=== PATIENT | male | born 1985 | race Caucasian/White ===

== ENCOUNTER 2016-09-12 22:52 | Emergency (ER) | payer MEDICAID ==
[~2016-09-12] VITALS: Ht 157.5 cm; Wt 86.0 kg
[2016-09-12 23:01] VITALS: Ht 157.5 cm; Wt 86.0 kg
[2016-09-12] MEDS ORDERED: ONDANSETRON (ODT) 4 MG TAB ODT STA (23:25)
[2016-09-12] MEDS ORDERED: SOD CHLORIDE 0.9% 1,000 ML IV ONE (23:30)
[2016-09-13] MEDS ORDERED: METR500T PO (00:10)
[2016-09-13] MEDS ORDERED: CIPR500T4 PO (00:10)
--- NOTE | 2016-09-13 02:15 | ERA ---
ER Documentation Chief Complaint Date/Time DATE: 09/13/16 TIME: 02:09 Chief Complaint weakness x 2 days HPI Patient is a 31-year-old male presenting with his mother who is a crate maker and seems reliable. Patient's chief complaint is watery diarrhea. Patient has had watery diarrhea for the past 2 days and describes it as profuse and 7 times within the past 30 hours. Patient ate fish 2 days ago with his family. No other on the family has symptoms. Patient also complains of fatigue. Claims he has been drinking liquids but has developed anorexia. 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 Patient denies any cough, congestion, fever, dysuria, hematuria headache, or dizziness. Patient was recently worked up for TB roughly 4 months ago per patient's mother and all results were negative. ROS All systems reviewed and are negative except as per history of present illness. Medications Home Meds Active Scripts Ciprofloxacin Hcl* (Ciprofloxacin Hcl*) 500 Mg Tablet, 500 MG PO BID for 7 Days , TAB Prov:KUMAR CRUZ PA-C 09/13/16 Metronidazole* (Flagyl*) 500 Mg Tablet, 500 MG PO TID for 7 Days, TAB Prov:KUMAR CRUZ PA-C 09/13/16 Allergies Allergies: Coded Allergies: No Known Allergy (Unverified , 09/12/16) PMhx/Soc Medical and Surgical Hx: pt denies Medical Hx History of Surgery: Yes (ABDOMINAL SURGERY CHILD) Anesthesia Reaction: No Hx Neurological Disorder: No Hx Respiratory Disorders: No Hx Cardiac Disorders: No Hx Psychiatric Problems: No Hx Miscellaneous Medical Probl: No Hx Alcohol Use: No Hx Substance Use: No Hx Tobacco Use: No Smoking Status: Never smoker Physical Exam Vitals Vital Signs Date Time Temp Pulse Resp B/P Pulse Ox O2 Delivery O2 Flow Rate FiO2 09/12/16 23:01 97.3 101 20 136/85 100 Physical Exam Const: Overweight 31-year-old male presenting with his mother Head: Atraumatic Eyes: Normal Conjunctiva ENT: Normal External Ears, Nose and Mouth. Moist mucous membranes. Neck: Full range of motion..~ No meningismus. Resp: Clear to auscultation bilaterally Cardio: Regular rate and rhythm, no murmurs Abd: Soft, non tender, non distended. Hyperactive bowel sounds Skin: No petechiae or rashes Back: No midline or flank tenderness Ext: No cyanosis, or edema Neur: Awake and alert Psych: Normal Mood and Affect Results 24 hrs Current Medications Medications (Trade) Dose Ordered Sig/Ashu Route PRN Reason Start Time Stop Time Status Last Admin Dose Admin Sodium Chloride (NS) 1,000 ml @ 1,000 mls/hr Q1H ONCE IV 09/12/16 23:30 09/13/16 00:29 DC 09/12/16 23:39 Ondansetron HCl (Zofran Odt) 4 mg ONCE STAT ODT 09/12/16 23:25 09/12/16 23:26 DC 09/12/16 23:39 Procedures/MDM Patient is 31-year-old male presenting complaining of profuse watery diarrhea for the past 2 days. Patient has gone to the bathroom 7 times. Patient ate fish a couple days ago with his family and no one else in the family has symptoms. Patient is also complaining of fatigue most likely secondary to dehydration. Patient's capillary refill was normal limits. Patient denies any cough or fever and at this time I do not suspect any Legionella infection. Most likely diagnosis is acute infectious noninvasive diarrhea. We will go ahead and treat with metronidazole and Cipro with return precautions for persistent diarrhea. Have educated the patient's on the dangers of dehydration. Patient passed a p.o. tolerance test before leaving. Patient's have denied any nausea medication I have except to the terms of antibiotic use. Departure Diagnosis: Primary Impression: Diarrhea Qualified Code: A09 - Diarrhea of presumed infectious origin Condition: Stable Patient Instructions: Self-Care for Vomiting and Diarrhea Additional Instructions: Return to emergency department immediately if diarrhea persists or characteristics change. KUMAR CRUZ PA-C Sep 13, 2016 02:15
== END 2016-09-13 01:13 | disposition home or self-care (01) ==
LOC: FTE 22:52
DX: R19.7 Diarrhea, unspecified (principal)
CPT/HCPCS: J7030; Z7610

== ENCOUNTER 2017-07-29 16:02 | Emergency (ER) | END 2017-07-29 18:24 | disposition home or self-care (01) ==

== ENCOUNTER 2017-09-29 17:34 | Emergency (ER) | END 2017-09-29 19:24 | disposition home or self-care (01) ==

== ENCOUNTER 2017-10-04 06:30 | Emergency (ER) | END 2017-10-04 07:36 | disposition home or self-care (01) ==